=== PATIENT | male | born 1995 | race Caucasian/White ===

== ENCOUNTER 2017-08-23 18:51 | Emergency (ER) | payer SELFPAY ==
[2017-08-23 19:21] VITALS: BP 130/72
[2017-08-23] MEDS ORDERED: VALACYCLOVIR HCL 500 MG TABLET PO ONE (20:12)
[2017-08-23] MEDS ORDERED: PREDNISONE 20 MG TABLET PO ONE (20:14)
--- NOTE | 2017-08-23 20:15 | ER Document Report ---
ED Medical Screen (RME) - General Chief Complaint: R facial droop Stated Complaint: DIZZINESS Time Seen by Provider: 08/23/17 20:04 Mode of Arrival: Ambulatory Information source: Patient Notes: Patient is a 21-year-old male who presents to the ER today for right-sided facial droop 3 days. Patient states that prior to it happening he felt dizzy "like things were spinning around me." He does state that his mother has had Hidalgo's palsy before and that it seems like that. He denies any weakness, numbness or tingling anywhere else. He does admit to loss of taste to the right side of his tongue. TRAVEL OUTSIDE OF THE [place] IN LAST 30 DAYS: No - Related Data Allergies/Adverse Reactions: No Known Allergies Allergy (Unverified 08/23/17 19:19) Past Medical History - General Information source: Patient Renal/ Medical History: Denies: Hx Peritoneal Dialysis Review of Systems - Review of Systems Constitutional: No symptoms reported EENT: No symptoms reported Cardiovascular: No symptoms reported Respiratory: No symptoms reported Gastrointestinal: No symptoms reported Genitourinary: No symptoms reported Male Genitourinary: No symptoms reported Musculoskeletal: No symptoms reported Skin: No symptoms reported Hematologic/Lymphatic: No symptoms reported Neurological/Psychological: See HPI Physical Exam - Vital signs Vitals: Temp Pulse Resp BP Pulse Ox 98.8 F 78 18 130/72 H 100 08/23/17 19:19 08/23/17 19:19 08/23/17 19:19 08/23/17 19:19 08/23/17 19:19 - Notes Notes: PHYSICAL EXAMINATION: GENERAL: Well-appearing and in no acute distress. HEAD: Atraumatic, normocephalic. EYES: Pupils equal round and reactive to light, extraocular movements intact, sclera anicteric, conjunctiva erythematous to right eye ENT: ear canals without erythema or foreign body, TMs pearly amador with good bony landmarks, nares patent, oropharynx clear without exudates. Moist mucous membranes. NECK: Normal range of motion, supple without lymphadenopathy LUNGS: CTAB and equal. No wheezes rales or rhonchi. HEART: Regular rate and rhythm without murmurs ABDOMEN: Soft, no tenderness. No guarding, no rebound BACK: no vertebral tenderness, normal ROM GI/: no CVA tenderness EXTREMITIES: Normal range of motion, no pitting edema. No cyanosis. NEUROLOGICAL: facial droop to right side of face, weakness to right eyelid, right eyebrow, right side of mouth, right eyelid will not close. Normal sensory/ motor exams. PSYCH: Normal mood, normal affect. SKIN: Warm, Dry, normal turgor, no rashes or lesions noted Course - Re-evaluation Re-evalutation: 08/23/17 20:20 will draw labwork to test for lyme and order valtrex and prednisone for bells palsy. - Vital Signs Vital signs: Temp Pulse Resp BP Pulse Ox 98.8 F 78 18 130/72 H 100 08/23/17 19:19 08/23/17 19:19 08/23/17 19:19 08/23/17 19:19 08/23/17 19:19 Doctor's Discharge - Discharge Clinical Impression: Hidalgo's palsy Condition: Stable Disposition: HOME, SELF-CARE Instructions: Hidalgo's Palsy ([facility]), Steroid Medication Additional Instructions: Return immediately for any new or worsening symptoms. Follow up with primary care provider, call tomorrow to make followup appointment. Prescriptions: Prednisone 60 mg PO DAILY #21 tablet Valacyclovir HCl [Valtrex] 1,000 mg PO TID #21 tablet Forms: Return to Work
[2017-08-27 12:38] LABS: LYME IGG P18 AB Absent (.); LYME IGG P23 AB Absent (.); LYME IGG P28 AB Absent (.); LYME IGG P30 AB Absent (.); LYME IGG P39 AB Absent (.); LYME IGG P41 AB Absent (.); LYME IGG P45 AB Absent (.); LYME IGG P58 AB Absent (.); LYME IGG P66 AB Present (.); LYME IGG P93 AB Absent (.); LYME IGM P23 AB Present (.); LYME IGM P39 AB Absent (.); LYME IGM P41 AB Present (.)
[2017-08-27 12:46] LABS: LYME DISEASE IGM AB 1.84 index (0.00-0.79)
[2017-08-27 12:47] LABS: LYME IGM WB INTERP Positive (.)
== END 2017-08-23 20:46 | disposition home or self-care (01) ==
LOC: ER 18:51
DX: G51.0 Bell's palsy (principal); R42 Dizziness and giddiness
CPT/HCPCS: 99284; 36415; 86618 ×2; 86617 ×2; J7512